=== PATIENT | female | born 1965 | race American Indian/Alaskan Native ===

== ENCOUNTER 2016-10-05 08:47 | Outpatient (CLI) | payer BC ==
--- NOTE | 2016-10-05 14:09 | Mammography Report ---
BONE DEXA:10/05/16 08:47:00 CLINICAL: Postmenopausal. COMPARISON: 04/22/14 TECHNIQUE: Two site bone DEXA performed on an Hologic scanner. FINDINGS: The average BMD of the lumbar spine L1-L4 is 0.911g/cm squared with a T-score of -1.2 and a Z-score of -0.3. This compares to 0.969g/cm squared on the last exam and represents a -6.0% change from the previous baseline. The average BMD of the left hip is 1.124g/cm squared with a T-score of -1.5 and a Z-score of +2.1. This compares to 1.087g/cm squared on the last exam and represents a +3.4% change from the previous baseline. IMPRESSION: 1. WHO classification: Osteopenia with increased fracture risk based on spine measurements. A moderate decline in spine BMD compared to the last exam. 2. WHO classification: Normal with average fracture risk based on left hip measurements. A modest improvement in left hip BMD compared to the prior exam. RECOMMENDATION: Clinical correlation and routine screening. DEFINITIONS: BMD = Bone Mineral Density T-score = BMD related to mean peak bone mass of young adult (mean expressed in Standard Deviation) Z-score = Age matched BMD expressed in SD World Health Organization (WHO) Diagnostic Criteria Normal T-score > -1 SD Osteopenia T-score between -1 and -2.4 SD Osteoporosis T-score -2.5 SD or below NOTE: BMD is not the only risk factor for fracture; also consider factors such as the patient's age, risk of falling, previous osteoporotic fracture, family history of osteoporotic fractures, current smoker, and low body weight. Z-scores are not calculated if >80 years of age.
== END 2016-10-05 08:48 | disposition home or self-care (01) ==
LOC: SPVWC 08:47
PROVIDERS: ATTEND Internal Medicine Hematology & Oncology
DX: M85.88 Other specified disorders of bone density and structure, other site (principal); Z78.0 Asymptomatic menopausal state
CPT/HCPCS: 77080